=== PATIENT | male | born 1990 | race Caucasian/White ===

== ENCOUNTER 2018-11-15 22:04 | Emergency (ER) | payer OTHER ==
[~2018-11-15] VITALS: Ht 175.2 cm; Wt 88.5 kg
--- NOTE | ~2018-11-15 | EKG ---
[place], [place] ELECTROCARDIOGRAM REPORT NAME: MILADIS MARRERO UNIT #: [id number] ROOM: DOCTOR: EPIPHANY DRAFT REPORT BIRTHDATE: [address] [facility] Test Date: 2018-11-15 Test Time: 22:53:55 Pat Name: MILADIS MARRERO Department: ER Room: Gender: M [employer]: EKG.UT : 1990 Requested By: EPIFANIO BIRD Order Number: [id number] Reading MD: Jovanna Gleason Measurements Intervals [place] Heart Rate: 86 P: 60 CA: 165 QRS: -39 QRSD: 104 T: 25 QT: 355 QTc: 425 Interpretive Statements Sinus rhythm Probable left atrial enlargement RSR' in V1 or V2, probably normal variant Inferior infarct, old Electronically Signed On 11-16-2018 5:18:12 PDT by Jovanna Gleason CM:EKGRPT:ELECTROCARDIOGRAM REPORT [id number] EPIFANIO MORALES DRAFT REPORT EPIFANIO BIRD DO
[2018-11-15 22:49] LABS: BILIRUBIN NEGATIVE (NEGATIVE); BLOOD NEGATIVE (NEGATIVE); CLARITY CLEAR (CLEAR); COLOR YELLOW (YELLOW); GLUCOSE NEGATIVE (NEGATIVE); KETONE NEGATIVE (NEGATIVE); LEUKO ESTERASE NEGATIVE (NEGATIVE); NITRITE NEGATIVE (NEGATIVE); UROBILINOGEN 0.2 E.U./dl (0.2-1.0)
[2018-11-15 22:57] LABS: URINE AMPHETAMINES < 1000 (1000ng/ml); URINE BARBITURATES < 200 (200ng/ml); URINE BENZODIAZEPINES < 200 (200ng/ml); URINE CANNABINOIDS (THC) < 50 (50ng/ml); URINE COCAINE < 300 (300ng/ml); URINE METHADONE < 300 (300ng/ml); URINE OPIATES < 300 (300ng/ml)
[2018-11-15 22:58] LABS: WBC 0-2 wbc/hpf (0-5)
[2018-11-15 22:59] LABS: URINE PHENCYCLIDINE < 25 (25ng/ml)
[2018-11-15 23:08] LABS: ALBUMIN 4.8 gm/dl (3.1-4.5); ALKALINE PHOSPHATASE 66 U/L (45-117); BUN 15 mg/dl (7-24); CHLORIDE 105 mmol/L (98-107); CREATININE 1.12 mg/dL (0.70-1.30); POTASSIUM 3.6 mmol/L (3.5-5.1); SGOT/AST 24 IU/L (3-35); SGPT/ALT 41 U/L (12-78); SODIUM 140 mmol/L (136-145); TOTAL PROTEIN 8.2 gm/dL (6.4-8.2)
[2018-11-15 23:11] LABS: BASO # 0.1 10*3/uL (0.0-0.1); BASO % 0.6 % (0.0-1.0); EOS # 0.1 10*3/uL (0.0-0.4); EOS % 0.7 % (1.0-4.0); HEMATOCRIT 47.9 % (42.0-52.0); HEMOGLOBIN 16.8 g/dl (14.0-18.0); LYMPH # 2.3 10*3/uL (1.3-4.4); LYMPH % 25.6 % (27.0-41.0); MEAN CELL VOLUME 85.8 fl (80.0-94.0); MEAN CORPUSCULAR HGB 30.1 pg (27.0-31.0); MEAN CORPUSCULAR HGB CONC 35.1 g/dl (33.0-37.0); MEAN PLATELET VOLUME 11.9 fl (9.6-12.3); MONO # 0.7 10*3/uL (0.1-1.0); MONO % 7.9 % (3.0-9.0); NEUT # 5.8 10*3/uL (2.3-7.9); PLATELET COUNT AUTOMATED 198 10*3/uL (130-400); RED BLOOD COUNT 5.58 10*6/uL (4.50-5.90)
== END 2018-11-16 00:36 | disposition home or self-care (01) ==
LOC: ED 22:04
PROVIDERS: Emergency Medicine
DX: R42 Dizziness and giddiness (principal)